=== PATIENT | male | born 1980 | race Two or more races ===

== ENCOUNTER 2020-07-18 23:41 | Emergency (ER) | payer SELFPAY ==
[~2020-07-18] VITALS: Ht 188 cm; Wt 115.9 kg
[2020-07-19] MEDS ORDERED: PRED20TA PO (00:17)
[2020-07-19] MEDS ORDERED: CEPH-264 PO (00:17)
--- NOTE | 2020-07-19 00:18 | PHYS DOC ---
Past Medical History Past Medical History: No Pertinent History Past Surgical History: No Surgical History Smoking Status: Current Every Day Smoker Alcohol Use: None Drug Use: Marijuana General Adult EDM: Chief Complaint: SKIN RASH/ABSCESS HPI: HPI: The history was obtained from the patient. Patient is a 40-year-old male with no reported PMH who presents with a chief complaint of rash to his legs bilaterally. Patient states he has been exposed to poison whit over the past 4 days. He states his been clearing up many houses and areas of brush. He states he has been living in a long-term does not have access to water currently states he does have some residual dirt left on his legs bilaterally. He notes the rash is red. He states that it seems to be slowly progressing proximally. Denies any involvement. Denies any wound to his face. States that the rash is pruritic. Denies any drainage from the rash. Denies any fevers. Denies the rash being painful. No other complaints. Review of Systems: Review of Systems: Constitutional: Denies fever or chills. [] Eyes: Denies change in visual acuity. [] HENT: Denies nasal congestion or sore throat. [] Respiratory: Denies cough or shortness of breath. [] Cardiovascular: Denies chest pain or edema. [] GI: Denies abdominal pain, nausea, vomiting, bloody stools or diarrhea. [] : Denies dysuria. [] Musculoskeletal: Denies back pain or joint pain. [] Integument: Positive for rash Neurologic: Denies headache, focal weakness or sensory changes. [] Endocrine: Denies polyuria or polydipsia. [] Lymphatic: Denies swollen glands. [] Psychiatric: Denies depression or anxiety. [] Heart Score: Risk Factors: Risk Factors: DM, Current or recent (<one month) smoker, HTN, HLP, family history of CAD, obesity. Risk Scores: Score 0 - 3: 2.5% MACE over next 6 weeks - Discharge Home Score 4 - 6: 20.3% MACE over next 6 weeks - Admit for Clinical Observation Score 7 - 10: 72.7% MACE over next 6 weeks - Early Invasive Strategies Allergies: Allergies: Allergies Coded Allergies Type Severity Reaction Last Updated Verified No Known Drug Allergies 07/18/20 No Physical Exam: PE: Constitutional: Well developed, well nourished, no acute distress, non-toxic appearance. [] HENT: Normocephalic, atraumatic, bilateral external ears normal, oropharynx moist, no oral exudates, nose normal. [] Eyes: PERRLA, EOMI, conjunctiva normal, no discharge. [] Neck: Normal range of motion, no tenderness, supple, no stridor. [] Cardiovascular:Heart rate regular rhythm, no murmur [] Lungs & Thorax: Bilateral breath sounds clear to auscultation [] Abdomen: soft, no tenderness, no masses, no pulsatile masses. [] Skin: Erythematous rash with scattered vesicular lesions noted to the lower extremities bilaterally. Erythema does extend to the medial thigh. No palpable areas of fluctuance. No crepitus appreciated. Back: No tenderness, no CVA tenderness. [] Extremities: No tenderness, no cyanosis, no clubbing, ROM intact, no edema. [] Neurologic: Alert and oriented X 3, normal motor function, normal sensory function, no focal deficits noted. [] Psychologic: Affect normal, judgement normal, mood normal. [] Current Patient Data: Vital Signs: Vital Signs Date Time Temp Pulse Resp B/P (MAP) Pulse Ox O2 Delivery O2 Flow Rate FiO2 07/18/20 23:55 98.1 114 21 97 Room Air 98.1 EKG: EKG: [] Radiology/Procedures: Radiology/Procedures: [] Course & Med Decision Making: Course & Med Decision Making Pertinent Labs and Imaging studies reviewed. (See chart for details) Patient is a 4-year-old male who presents with rash to his legs bilaterally. Clinically the patient does have a contact dermatitis. Given there is some poor hygiene I do feel is reasonable to treat him with a course of prophylactic antibiotics to prevent overlying/cellulitis developing. He was given his first dose of Keflex and prednisone in emergency department. He will be given a 21- day course of prednisone. He was instructed to follow-up with a primary care physician in the next 2 to 3 days for skin reevaluation. He was instructed on supportive care measures at home to help with pruritus. Stable for discharge. Dragon Disclaimer: Dragon Disclaimer: This electronic medical record was generated, in whole or in part, using a voice recognition dictation system. Departure Departure Impression: Primary Impression: Contact dermatitis Qualified Codes: L24.7 - Irritant contact dermatitis due to plants, except food Disposition: 01 HOME, SELF-CARE Condition: GOOD Referrals: NO PCP (PCP) Patient Instructions: Poison Whit Additional Instructions: [facility] [address] [place] [address] [facility] [address] [place] [address] Family [facility] [address] [facility] [place] [address] [facility] [address] [place] [address] [facility] [address] [place] [address] [facility] [address] [place] [address] [facility] [address] [place] [address] [facility] [address] [place] [address] [facility] [address] [place] [address] [facility] [address] [place] [address] Scripts Cephalexin (KEFLEX) 500 Mg Capsule 1 CAP PO QID for 7 Days, #28 CAP 0 Refills Prov: KATHLEEN KAPOOR DO 07/19/20 Prednisone (PREDNISONE) 20 Mg Tablet 10 MG PO DAILY for 21 Days, #42 TAB 60 mg x 4 days, 50 mg x 4 days, 40 mg x 4 days, 30 mg x 4 days, 20 mg x 4 days, 10 mg x 2 days. Total of 22 days Prov: KATHLEEN KAPOOR DO 07/19/20 Justicifation of Admission Dx: Justifications for Admission: Justification of Admission Dx: N/A KATHLEEN KAPOOR DO Jul 19, 2020 00:18
[2020-07-19] MEDS ORDERED: CEPHALEXIN 250 MG CAPSULE. PO ONE (00:30)
[2020-07-19] MEDS ORDERED: predniSONE 20 MG TABLET PO ONE (00:30)
[2020-07-19 00:42] VITALS: BP 115/68
== END 2020-07-19 00:44 | disposition home or self-care (01) ==
LOC: ER 23:41
DX: L24.7 Irritant contact dermatitis due to plants, except food (principal); F17.200 Nicotine dependence, unspecified, uncomplicated
CPT/HCPCS: 99283; J7512